=== PATIENT | female | born 1985 | race American Indian/Alaskan Native ===

== ENCOUNTER 2018-10-07 21:16 | Emergency (ER) | payer OTHER ==
--- NOTE | 2018-10-07 21:23 | Emergency Department Report ---
Blank Doc - Documentation Documentation: This is a 32-year-old female that presents with right arm redness and itching. This initial assessment/diagnostic orders/clinical plan/treatment(s) is/are subject to change based on patient's health status, clinical progression and re- assessment by fellow clinical providers in the ED. Further treatment and workup at subsequent clinical providers discretion. Patient/guardians urged not to elope from the ED as their condition may be serious if not clinically assessed and managed. Initial orders include: 1- Patient sent to MAIN ED for further evaluation and treatment
[2018-10-08] MEDS ORDERED: BENADRYL PO ONE (01:05)
--- NOTE | 2018-10-08 01:10 | Emergency Department Report ---
ED Rash HPI - HPI Chief Complaint: Skin Rash Stated Complaint: RT ARM PAINFUL Time Seen by Provider: 10/07/18 21:21 Duration: 2 Days Location: Upper Extremities (right) Suspected Cause: Unknown Rash Symptoms: Yes Itching, No Facial Swelling, No Tongue/Oral Swelling, No Breathing Difficulties, No Choking Sensation, No Wheezing/Dyspnea, No Peeling, No Blistering, No Fever, No Lightheaded, No Malaise, No Myalgias Other History: This is a 32-year-old female Presents with the itchy rash to right upper arm for 2 days. Patient reports redness increase over the past 2 days. She is unsure of possible in the body. She has not tried taking any medication for symptomatic relief. She also reports more and mild swelling to the area. She denies fever, chest pain, shortness of breath, tongue swelling, difficulty swallowing, numbness or tingling. ED Review of Systems ROS: Stated complaint: RT ARM PAINFUL Other details as noted in HPI Constitutional: denies: chills, fever Respiratory: denies: cough, shortness of breath, wheezing Cardiovascular: denies: chest pain, palpitations Gastrointestinal: denies: abdominal pain, nausea, diarrhea Musculoskeletal: denies: back pain, joint swelling, arthralgia Skin: rash (RUE). denies: lesions Neurological: denies: headache, weakness, paresthesias Psychiatric: denies: anxiety, depression ED Past Medical Hx - Past Medical History Previous Medical History?: No - Surgical History Past Surgical History?: No - Social History Smoking Status: Never Smoker Substance Use Type: None - Medications Home Medications: Home Medications Medication Instructions Recorded Confirmed Last Taken Type HYDROcodone/APAP 5-325 [[place] 1 each PO Q6HR PRN #10 tablet 01/16/16 Unknown Rx 5/325] Multivit-Min/Iron/Folic/Lutein 1 each PO DAILY 01/16/16 01/16/16 01/15/16 History [Centrum Silver Women Tablet] Clindamycin [Clindamycin CAP] 300 mg PO Q6H #20 cap 10/08/18 Unknown Rx Diphenhydramine HCl [Benadryl GEL] 103 ml TP QID PRN #1 gel..ml. 10/08/18 Unknown Rx Rash Exam - Exam General: Vital signs noted. No distress. Alert and acting appropriately. HEENT: No Periorbital Edema, No Conjuctival Injection, No Chemosis, No Perioral Edema, No Tongue Edema, No Uvular Edema, No Compromised Airway, No Drooling Lungs: Yes Good Air Exchange (Normal Breath Sounds), No Wheezes, No Ronchi, No Stridor, No Cough, No Labored Respirations, No Retractions, No Use of Accessory Muscles, No Other Abnormal Lung Sounds Heart: Yes Regular, No Murmur Skin: Yes Erythema (4-5 cm erythematous area to RUE, tender around margins, no swelling or warmth), No Urticarial Rash, No Maculopapular Rash, No Morbilliform rash, No Excoriations, No Weeping, No Tenderness, No Edema, No Encrustations ED Course Vital Signs 10/07/18 21:22 Temperature 98.5 F Pulse Rate 106 H Respiratory 18 Rate Blood Pressure 118/85 O2 Sat by Pulse 96 Oximetry Vital Signs 10/07/18 10/08/18 21:22 01:27 Temperature 98.5 F 98.6 F Pulse Rate 106 H 85 Respiratory 18 20 Rate Blood Pressure 118/85 Blood Pressure 105/67 [Left] O2 Sat by Pulse 96 99 Oximetry ED Medical Decision Making - Medical Decision Making Patient was examined by me. Vitals are normal and patient is in no acute distress. On focal exam findings are susceptible of cellulitis. Patient informed of results. Start clindamycin 300 mg by mouth 4 times a day 5 days an d Benadryl. Plan discussed with patient to discharge home and treat outpatient. She agrees with ER plan. Patient discharged home in stable condition. Follow up with PCP in 2-3 days. Critical care attestation.: If time is entered above; I have spent that time in minutes in the direct care of this critically ill patient, excluding procedure time. ED Disposition Clinical Impression: Rash, Cellulitis of arm, right Disposition: -01 TO HOME OR SELFCARE Is pt being admited?: No Does the pt Need Aspirin: No Condition: Stable Instructions: Cellulitis (ED) Additional Instructions: Complete full course of antibiotics as prescribed. Take Benadryl every 6 hours as needed for itching. Follow-up with your primary care provider if symptoms persist. Return to the emergency room he has swelling, warmth to touch, redness increase in size,, fever, chills, nausea or vomiting, or headache. Prescriptions: Diphenhydramine HCl [Benadryl GEL] 103 ml TP QID PRN #1 gel..ml. PRN Reason: Itching Clindamycin [Clindamycin CAP] 300 mg PO Q6H #20 cap Referrals: RADHA GOTTLIEB MD [Primary Care Provider] - 3-5 Days [facility] [Outside] - 3-5 Days [facility] [Outside] - 3-5 Days Time of Disposition: 01:19
[2018-10-08 01:28] VITALS: BP 105/67
== END 2018-10-08 01:25 | disposition home or self-care (01) ==
LOC: ED 21:16
DX: L03.113 Cellulitis of right upper limb (principal); R21 Rash and other nonspecific skin eruption

== ENCOUNTER 2020-08-11 18:46 | Emergency (ER) | payer SELFPAY ==
[2020-08-11] MEDS ORDERED: IBUPROFEN 600 MG TAB PO ONE (19:31)
[2020-08-11] MEDS ORDERED: HYDROcodone/ACETAMINOPHEN 5-325 MG TAB PO ONE (19:31)
[2020-08-11] MEDS ORDERED: ONDANSETRON 4 MG ODT TAB PO ONE (19:31)
--- NOTE | 2020-08-11 19:38 | Emergency Department Report ---
ED Fall HPI - General Chief Complaint: Extremity Injury, Lower Stated Complaint: LT KNEE INJURY FALL Source: patient Mode of arrival: Ambulatory - History of Present Illness Initial Comments: Patient is a 34 yo AA female with no past medical history who presents to the ED with c/o acute onset persistent severe left knee pain after she slipped and fell down on a wet concrete floor at work about 8 hours ago. Patient states that she is unable to bear weight on left leg due to severe left knee pain. Patient states that the pain has worsened in the last 4 hours. Patient denies dyspnea, chest pain, numbness, tingling or weakness of left leg, hip pain, back pain, head or neck injuries, LOC, syncope, seizures, dizziness or vision changes. MD Complaint: fall, other (left knee pain ) -: Sudden, hour(s) (8) Fall From: standing When Fall Occurred: 4-6 hours [employer] (8 hours ago) Fall Witnessed: yes, by bystander Place Fall Occurred: work Loss of Consciousness: none Prolonged Down Time?: no Symptoms Prior to Fall: none Location: other (left knee pain) Location - Extremities: Left: Knee (Pain and mild swelling) Severity: severe Severity scale (0 -10): 8 Quality: sharp, aching Context: tripped/slipped (slipped on a wet surface at work) Associated Symptoms: denies. denies: headache, neck pain, numbness, weakness, chest paint, shortness of breath, abdominal pain, hematuria, unable to walk, lightheaded, vertigo, confusion, other - Related Data Home Medications Medication Instructions Recorded Confirmed Last Taken Multivit-Min/Iron/Folic/Lutein 1 each PO DAILY 01/16/16 01/16/16 01/15/16 [Centrum Silver Women Tablet] Previous Rx's Medication Instructions Recorded Last Taken Type HYDROcodone/APAP 5-325 [[place] 1 each PO Q6HR PRN #10 tablet 01/16/16 Unknown Rx 5/325] Clindamycin [Clindamycin CAP] 300 mg PO Q6H #20 cap 10/08/18 Unknown Rx Diphenhydramine HCl [Benadryl GEL] 103 ml TP QID PRN #1 gel..ml. 10/08/18 Unknown Rx Ibuprofen [Motrin] 800 mg PO Q8HR PRN #30 tablet 08/11/20 Unknown Rx methOCARBAMOL [Robaxin TAB] 750 mg PO Q8H PRN #21 tablet 08/11/20 Unknown Rx traMADoL [Ultram] 50 mg PO Q6HR PRN #12 tablet 08/11/20 Unknown Rx Allergies Allergy/AdvReac Type Severity Reaction Status Date / Time No Known Allergies Allergy Verified 10/07/18 21:19 ED Review of Systems ROS: Stated complaint: LT KNEE INJURY FALL Other details as noted in HPI Constitutional: denies: chills, fever Eyes: denies: eye pain, eye discharge, vision change ENT: denies: ear pain, throat pain Respiratory: denies: cough, shortness of breath, wheezing Cardiovascular: denies: chest pain, palpitations Endocrine: no symptoms reported Gastrointestinal: denies: abdominal pain, nausea, diarrhea Genitourinary: denies: urgency, dysuria, discharge Musculoskeletal: joint swelling (mild left knee swelling), arthralgia (left knee pain). denies: back pain Skin: denies: rash, lesions Neurological: denies: headache, weakness, paresthesias Psychiatric: denies: anxiety, depression Hematological/Lymphatic: denies: easy bleeding, easy bruising ED Past Medical Hx - Past Medical History Previous Medical History?: No - Surgical History Past Surgical History?: No - Social History Smoking Status: Never Smoker - Medications Home Medications: Home Medications Medication Instructions Recorded Confirmed Last Taken Type HYDROcodone/APAP 5-325 [[place] 1 each PO Q6HR PRN #10 tablet 01/16/16 Unknown Rx 5/325] Multivit-Min/Iron/Folic/Lutein 1 each PO DAILY 01/16/16 01/16/16 01/15/16 History [Centrum Silver Women Tablet] Clindamycin [Clindamycin CAP] 300 mg PO Q6H #20 cap 10/08/18 Unknown Rx Diphenhydramine HCl [Benadryl GEL] 103 ml TP QID PRN #1 gel..ml. 10/08/18 Unknown Rx Ibuprofen [Motrin] 800 mg PO Q8HR PRN #30 tablet 08/11/20 Unknown Rx methOCARBAMOL [Robaxin TAB] 750 mg PO Q8H PRN #21 tablet 08/11/20 Unknown Rx traMADoL [Ultram] 50 mg PO Q6HR PRN #12 tablet 08/11/20 Unknown Rx ED Physical Exam - General Limitations: No Limitations General appearance: alert, in no apparent distress - Head Head exam: Present: atraumatic, normocephalic, normal inspection - Eye Eye exam: Present: normal appearance, PERRL, EOMI Pupils: Present: normal accommodation - ENT ENT exam: Present: normal exam, normal orophraynx, mucous membranes moist, TM's normal bilaterally, normal external ear exam - Neck Neck exam: Present: normal inspection, full ROM - Respiratory Respiratory exam: Present: normal lung sounds bilaterally. Absent: respiratory distress, wheezes, rales, rhonchi, stridor, chest wall tenderness, accessory muscle use, decreased breath sounds, prolonged expiratory - Cardiovascular Cardiovascular Exam: Present: regular rate, normal rhythm, normal heart sounds. Absent: systolic murmur, diastolic murmur, rubs, gallop - GI/Abdominal GI/Abdominal exam: Present: soft, normal bowel sounds. Absent: tenderness, guarding, rebound, hyperactive bowel sounds, hypoactive bowel sounds, organomegaly, mass - Extremities Exam Extremities exam: Present: normal inspection, tenderness (Palpable left knee tenderness with mild swelling and limited ROM due to pain), normal capillary refill, joint swelling. Absent: full ROM (limited ROM of left knee due to pain), pedal edema, calf tenderness - Back Exam Back exam: Present: normal inspection, full ROM. Absent: tenderness, CVA tenderness (R), CVA tenderness (L), muscle spasm, paraspinal tenderness, vertebral tenderness - Neurological Exam Neurological exam: Present: alert, oriented X3, CN II-XII intact, normal gait, reflexes normal - Psychiatric Psychiatric exam: Present: normal affect, normal mood - Skin Skin exam: Present: warm, dry, intact, normal color. Absent: rash ED Course Vital Signs 08/11/20 08/11/20 08/11/20 19:01 19:44 20:00 Temperature 98.4 F Pulse Rate 63 Respiratory 20 18 18 Rate Blood Pressure 119/77 ED Medical Decision Making - Radiology Data Radiology results: report reviewed, image reviewed Findings [facility] [address] [place] [address] XRay Report Signed Patient: ISAÍAS MIRANDA MR#: [id number] : 1985 Acct:[id number] Age/Sex: 34 / F ADM Date: 08/11/20 Loc: ED Attending Dr: Ordering Physician: CALLIE BRANDON MD Date of Service: 08/11/20 Procedure(s): XR knee 3V LT Accession Number(s): [id number] cc: CALLIE BRANDON MD Fluoro Time In Minutes: LEFT KNEE 3 VIEWS INDICATION / CLINICAL INFORMATION: Left knee pain. COMPARISON: None available. FINDINGS: BONES / JOINT(S): No acute fracture or subluxation. No significant arthritis. SOFT TISSUES: No significant abnormality. ADDITIONAL FINDINGS: None. Signer Name: [place] Villegas MD Signed: 08/11/2020 7:34 PM Workstation Name: [id number] Transcribed By: ES Dictated By: [place]on Villegas MD Electronically Authenticated By: [place]on Villegas MD Signed Date/Time: 08/11/201933 DD/ 32 TD/TT: - Medical Decision Making This is a 34 yo AA female with no past medical history who presents to the ED with c/o acute onset persistent severe left knee pain after she slipped and fell down on a wet concrete floor at work about 8 hours ago. Patient states that she is unable to bear weight on left leg due to severe left knee pain. Patient states that the pain has worsened in the last 4 hours. In the ED, patient is alert and oriented x 3 and is in no acute distress. Patient was treated for pain in the ED, and left knee x-ray showed no acute fractures or subluxations. Patient already had an [place] wrap on the left knee prior to arrival in the ED. Patient was therefore discharged home on pain medications and advised to follow up with her PCP in 7-10 days for reevaluation or return to the ED immediately if symptoms get worse. - Differential Diagnosis Knee fracture; knee contusion; knee sprain; Ligament injury; muscle strain Critical care attestation.: If time is entered above; I have spent that time in minutes in the direct care of this critically ill patient, excluding procedure time. ED Disposition Clinical Impression: Contusion of left lower leg, initial encounter Sprain of left knee Qualifiers: Encounter type: initial encounter Involved ligament of knee: unspecified ligament Qualified Code(s): S83.92XA - Sprain of unspecified site of left knee, initial encounter Muscle strain of left knee Qualifiers: Encounter type: initial encounter Qualified Code(s): S86.912A - Strain of unspecified muscle(s) and tendon(s) at lower leg level, left leg, initial encounter Disposition: TO HOME OR SELFCARE Is pt being admited?: No Condition: Stable Instructions: Knee Sprain, Adult, [id number], Muscle Strain, [id number], Contusion, [id number] Additional Instructions: The left knee x-ray showed no fractures or subluxations. Therefore take medications and follow up with your Primary care Physician in 7-10 days for reevaluation. Return to the ED immediately if symptoms get worse. Prescriptions: Ibuprofen [Motrin] 800 mg PO Q8HR PRN #30 tablet PRN Reason: Pain , Severe (7-10) methOCARBAMOL [Robaxin TAB] 750 mg PO Q8H PRN #21 tablet PRN Reason: Muscle Spasm traMADoL [Ultram] 50 mg PO Q6HR PRN #12 tablet PRN Reason: Pain Referrals: JAYA BERNARD MD [Staff Physician] - 3-5 Days Forms: Work/School Release Form(ED) Time of Disposition: 19:38 Print Language: [place]
[2020-08-11 19:47] VITALS: BP 119/77
== END 2020-08-11 20:00 | disposition home or self-care (01) ==
LOC: ED 18:46
DX: S86.912A Strain of unspecified muscle(s) and tendon(s) at lower leg level, left leg, initial encounter (principal); S83.92XA Sprain of unspecified site of left knee, initial encounter; S80.02XA Contusion of left knee, initial encounter; Z79.899 Other long term (current) drug therapy; W18.30XA Fall on same level, unspecified, initial encounter; Y93.89 Activity, other specified; Y92.89 Other specified places as the place of occurrence of the external cause; Y99.8 Other external cause status
CPT/HCPCS: 99283; Q0162